=== PATIENT | female | born 1975 | race Caucasian/White ===

== ENCOUNTER 2021-09-27 07:54 | Emergency (ER) | payer SELFPAY ==
[~2021-09-27] VITALS: Ht 157.5 cm; Wt 61.2 kg
[2021-09-27] MEDS ORDERED: MECLIZINE HCL 25 MG TABLET PO ONE (08:30)
[2021-09-27 08:43] LABS: HEMATOCRIT 38.3 % (31.2-41.9); MEAN CORPUSCULAR HEMOGLOBIN 30.8 uug (24.7-32.8); MEAN CORPUSCULAR VOLUME 89.6 fL (75.5-95.3); PLATELET COUNT (AUTO) 308 K/uL (179-408)
[2021-09-27 08:48] LABS: CREATININE 0.8 mg/dL (0.6-1.3); POTASSIUM 3.7 mmol/L (3.5-5.1)
[2021-09-27 08:53] LABS: BILIRUBIN,TOTAL 0.4 mg/dL (0.2-1.0); TOTAL PROTEIN, SERUM 7.7 g/dL (6.4-8.2)
[2021-09-27] MEDS ORDERED: MECLIZINE HCL 25 MG TABLET ONE (09:10)
--- NOTE | 2021-09-27 09:35 | NUR ---
PT IS IN ROOM #3. DR JORDAN EVALUATED THE PT.
[2021-09-27 09:43] LABS: *BILIRUBIN,URIN NEGATIVE (NEGATIVE); *BLOOD, URINE NEGATIVE (NEGATIVE); *CLARITY,URINE CLEAR (CLEAR); *COLOR,URINE YELLOW (YELLOW); *KETONES,URINE NEGATIVE (NEGATIVE); *UROBILINOGEN,URINE 0.2 E.U./dl (NORMAL); LEUKOCYTE ESTERASE ,URINE NEGATIVE (NEGATIVE); NITRITE, URINE NEGATIVE (NEGATIVE); PH,URINE 6.5 (5.0-8.0); UGLUCOSE NEGATIVE (NEGATIVE)
[2021-09-27] MEDS ORDERED: MECL-159 PO (09:50)
--- NOTE | 2021-09-27 10:17 | NUR ---
PT WAS D/C'd TO HOME. D/C INSTRUCTIONS GIVEN TO THE PT BY DR JORDAN.
[2021-09-27 10:18] VITALS: BP 131/71
== END 2021-09-27 10:19 | disposition home or self-care (01) ==
LOC: ER 07:54
DX: R42 Dizziness and giddiness (principal); R53.83 Other fatigue; Z20.822 Contact with and (suspected) exposure to COVID-19
CPT/HCPCS: 36415; 85025; 93005; A4663; J8597